=== PATIENT | male | born 1965 | race Caucasian/White ===

== ENCOUNTER 2024-05-11 09:11 | Inpatient (IN) | payer MEDICARE ==
[~2024-05-11] VITALS: Ht 175.3 cm; Wt 82.6 kg
[2024-05-11 09:50] LABS: BASOPHILS # (AUTO) 0.1 K/UL (0.0-0.2); BASOPHILS % (AUTO) 0.5 % (0.0-2.0); HEMATOCRIT 43.1 % (36.7-47.1); LYMPHOCYTES # (AUTO) 0.9 K/uL (0.8-4.8); LYMPHOCYTES % (AUTO) 5.8 % (20.5-51.5); MEAN CORPUSCULAR HEMOGLOBIN 32.7 uug (23.8-33.4); MEAN CORPUSCULAR HGB CONC 33 g/dL (32.5-36.3); MEAN CORPUSCULAR VOLUME 100.6 fL (73.0-96.2); MONOCYTES # (AUTO) 0.9 K/uL (0.1-1.30); MONOCYTES % (AUTO) 5.5 % (0.0-11.0); NEUTROPHILS # (AUTO) 14.4 K/uL (1.8-8.9); NEUTROPHILS % (AUTO) 88.2 % (38.5-71.5); PLATELET COUNT (AUTO) 309 K/uL (152-348); RED BLOOD CELL COUNT(AUTO) 4.29 MIL/uL (4.06-5.63); RED CELL DISTRIBUTION WIDTH 13.5 % (12.1-16.2); WHITE BLOOD COUNT (AUTO) 16.4 K/uL (3.6-10.2)
[2024-05-11 09:51] LABS: DIFFERENTIAL COMMENT 1
[2024-05-11 09:59] LABS: ALBUMIN 3.9 g/dL (3.4-5.0); BILIRUBIN,TOTAL 0.6 mg/dL (0.2-1.0); CALCIUM 9.4 mg/dL (8.5-10.1); CREATININE 2.9 mg/dL (0.6-1.3); POTASSIUM 5.4 mmol/L (3.5-5.1); TOTAL PROTEIN, SERUM 7.7 g/dL (6.4-8.2)
[2024-05-11] MEDS: IV NS 1000 ML 1,000 ML IV ONE ×2 (10:01→10:35)
[2024-05-11 10:19] LABS: ABG BASE EXCESS -13.8 mmol/L (-2.0-3.0); ABG HCO3 10.8 mmol/L (21.0-28.0); ABG PH 7.288 (7.350-7.450); ABG SITE RIGHT RADIAL; AaDO2 94.1 mmHg; COHb 0.4 % (0.5-1.5); MetHb 0.3 % (0.0-1.5); O2Hb 94.1 % (94.0-98.0)
[2024-05-11] MEDS ORDERED: BUSP30TA2 PO (10:23)
[2024-05-11] MEDS ORDERED: ARIP5TAB59 PO (10:23)
[2024-05-11] MEDS ORDERED: EZET10TA32 PO (10:23)
[2024-05-11] MEDS ORDERED: LEVO75TA7 PO (10:23)
[2024-05-11] MEDS ORDERED: ROSU10TA2 PO (10:23)
[2024-05-11] MEDS ORDERED: TRAZ300T2 PO (10:23)
[2024-05-11] MEDS ORDERED: INSU1CAR (10:23)
[2024-05-11] MEDS ORDERED: METF-440 PO (10:23)
[2024-05-11] MEDS ORDERED: VILA40TA PO (10:23)
[2024-05-11] MEDS ORDERED: LOSA100T31 PO (10:23)
[2024-05-11] MEDS ORDERED: INSU100V39 SQ (10:23)
[2024-05-11] MEDS ORDERED: INSULIN REGULAR, HUMAN 1000 UNIT/10 ML VIAL ONE (10:24)
[2024-05-11 10:31] LABS: ACETONE, SERUM SMALL (NEGATIVE)
[2024-05-11] MEDS: INSULIN REGULAR, HUMAN 1000 UNIT/10 ML VIAL IV ONE ×2 (10:34→11:40)
[2024-05-11] MEDS: ONDANSETRON 4 MG/2 ML VIAL IV ONE (10:35)
[2024-05-11] MEDS ORDERED: ONDANSETRON 4 MG/2 ML VIAL ONE (10:36)
[2024-05-11] MEDS ORDERED: diphenhydrAMINE 50 MG/1 ML VIAL ONE ×2 (10:57→16:17)
[2024-05-11] MEDS ORDERED: HALOPERIDOL LACTATE 5 MG/1 ML VIAL ONE ×2 (10:57→16:17)
[2024-05-11] MEDS ORDERED: LORAZEPAM 2 MG/1 ML VIAL ONE ×2 (10:58→16:18)
[2024-05-11] MEDS: HALOPERIDOL LACTATE 5 MG/1 ML VIAL IV ONE (11:00)
[2024-05-11 11:01] LABS: MAGNESIUM 2.3 mg/dL (1.8-2.4); PHOSPHOROUS 5.4 mg/dL (2.5-4.9)
[2024-05-11] MEDS: diphenhydrAMINE 50 MG/1 ML VIAL IV ONE (11:02)
[2024-05-11 11:03] LABS: *BILIRUBIN,URIN NEGATIVE (NEGATIVE); *BLOOD, URINE NEGATIVE (NEGATIVE); *CLARITY,URINE CLEAR (CLEAR); *COLOR,URINE YELLOW (YELLOW); *KETONES,URINE 4+ (NEGATIVE); *PROTEIN,URINE NEGATIVE (NEGATIVE); *UROBILINOGEN,URINE 0.2 E.U./dl (NORMAL); LEUKOCYTE ESTERASE ,URINE NEGATIVE (NEGATIVE); NITRITE, URINE NEGATIVE (NEGATIVE); PH,URINE 5.5 (5.0-8.0); UGLUCOSE 2+ (NEGATIVE)
[2024-05-11 11:04] LABS: BACTERIA,URINE FEW /HPF (NONE SEEN); WBC,URINE 0-3 /HPF (0-3)
[2024-05-11] MEDS: LORAZEPAM 2 MG/1 ML VIAL IV ONE ×2 (11:04→16:50)
[2024-05-11] MEDS ORDERED: INSULIN REGULAR, HUMAN 100 UNIT in IV NORMAL SALINE 100 ML IV PRN (12:30)
[2024-05-11] MEDS: BLOOD SUGAR DIAGNOSTIC 1 EACH STRIP VI SCH ×2 (13:30→15:00)
[2024-05-11 14:59] LABS: CALCIUM 9.1 mg/dL (8.5-10.1); CREATININE 2.2 mg/dL (0.6-1.3); POTASSIUM 4.7 mmol/L (3.5-5.1)
[2024-05-11] MEDS: INSULIN REGULAR, HUMAN 100 UNIT in IV NORMAL SALINE 99 ML IV PRN (15:02)
[2024-05-11] MEDS ORDERED: MORPHINE SULFATE 2 MG/1 ML DISP.SYRIN IV PRN (15:30)
[2024-05-11] MEDS ORDERED: ONDANSETRON 4 MG/2 ML VIAL IV PRN (15:30)
[2024-05-11] MEDS ORDERED: ACETAMINOPHEN 325 MG TABLET PO PRN (15:30)
[2024-05-11] MEDS: IV NS 1000 ML 1,000 ML IV PRN (16:04)
[2024-05-11] MEDS: diphenhydrAMINE 50 MG/1 ML VIAL IV PRN (16:49)
[2024-05-11] MEDS: HALOPERIDOL LACTATE 5 MG/1 ML VIAL IVP PRN (16:50)
[2024-05-11] MEDS: busPIRone 10 MG TABLET PO SCH (16:56)
[2024-05-11] MEDS ORDERED: Medication Not On Formulary EA (Rosuvastatin Calcium (Crestor) 10 MG) PO SCH (21:00)
[2024-05-11] MEDS: TRAZODONE 100 MG TABLET PO SCH (21:00)
[2024-05-11] MEDS: ATORVASTATIN 20 MG TABLET PO SCH (21:00)
[2024-05-11] MEDS ORDERED: TRAZODONE HCL 300 MG PO SCH (21:00)
[2024-05-11 21:30] VITALS: BP 111/73; TEMP 97.9
[2024-05-11 22:00] VITALS: BP 100/64
[2024-05-11 23:00] VITALS: BP 96/55
[2024-05-11] MEDS: IV D5/ 0.9% NACL 1,000 ML IV PRN (23:20)
[2024-05-11] MEDS: BLOOD SUGAR DIAGNOSTIC 1 EACH STRIP VI ONE (23:41)
[2024-05-12] VITALS (21 sets, daily range): BP systolic 90–133; BP diastolic 42–83; TEMP 97.4–98.3; O2SAT 93–98
[2024-05-12] MEDS: BLOOD SUGAR DIAGNOSTIC 1 EACH STRIP VI SCH ×2 (04:42→08:37)
[2024-05-12 05:06] LABS: BASOPHILS % (AUTO) 0.3 % (0.0-2.0); EOSINOPHILS % (AUTO) 0.1 % (0.0-7.0); HEMOGLOBIN 12.4 g/dL (12.5-16.3); LYMPHOCYTES # (AUTO) 1.9 K/uL (0.8-4.8); LYMPHOCYTES % (AUTO) 15.5 % (20.5-51.5); MEAN CORPUSCULAR HEMOGLOBIN 32.3 uug (23.8-33.4); MEAN CORPUSCULAR HGB CONC 34 g/dL (32.5-36.3); MEAN CORPUSCULAR VOLUME 93.8 fL (73.0-96.2); MONOCYTES # (AUTO) 0.6 K/uL (0.1-1.30); MONOCYTES % (AUTO) 4.6 % (0.0-11.0); NEUTROPHILS # (AUTO) 9.9 K/uL (1.8-8.9); NEUTROPHILS % (AUTO) 79.5 % (38.5-71.5); PLATELET COUNT (AUTO) 242 K/uL (152-348); RED BLOOD CELL COUNT(AUTO) 3.84 MIL/uL (4.06-5.63); RED CELL DISTRIBUTION WIDTH 13.1 % (12.1-16.2); WHITE BLOOD COUNT (AUTO) 12.4 K/uL (3.6-10.2)
[2024-05-12 05:45] LABS: ACETONE, SERUM TRACE (NEGATIVE)
[2024-05-12 05:47] LABS: ALANINE AMINOTRANSFERASE 26 U/L (16-63); ALBUMIN 3.3 g/dL (3.4-5.0); ALKALINE PHOSPHATASE 49 U/L (50-136); ASPARTATE AMINOTRANSFERASE 19 U/L (15-37); BILIRUBIN,DIRECT 0.1 mg/dL (0.0-0.2); BILIRUBIN,TOTAL 0.5 mg/dL (0.2-1.0); CALCIUM 8.7 mg/dL (8.5-10.1); CARBON DIOXIDE 27 mmol/L (21-32); CHLORIDE 108 mmol/L (98-107); CHOLESTEROL 103 mg/dL (<200); CREATININE 1.5 mg/dL (0.6-1.3); GLUCOSE 195 mg/dL (74-106); HDL CHOLESTEROL 69 mg/dL (40-60); PHOSPHOROUS 2.2 mg/dL (2.5-4.9); POTASSIUM 4.4 mmol/L (3.5-5.1); SODIUM SERUM 143 mmol/L (136-145); THYROID STIMULATING HORMONE 0.501 mIU/mL (0.358-3.740); TOTAL PROTEIN, SERUM 5.7 g/dL (6.4-8.2); TRIGLYCERIDES 45 MG/DL (30-150); UREA NITROGEN, BLOOD 27 mg/dL (7-18)
[2024-05-12] MEDS ORDERED: INSULIN REGULAR, HUMAN 300 UNITS/3 ML VIAL SQ PRN (07:45)
[2024-05-12] MEDS ORDERED: DEXTROSE 50% 50 ML DISP.SYRIN IV PRN (07:45)
[2024-05-12] MEDS: PANTOPRAZOLE SODIUM 40 MG TABLET.DR PO SCH (08:32)
[2024-05-12] MEDS: LEVOTHYROXINE SODIUM 75 MCG TABLET PO SCH (08:38)
[2024-05-12] MEDS ORDERED: VILAZODONE HYDROCHLORIDE PO SCH (09:00)
[2024-05-12] MEDS: [UNRECOGNIZED DRUG - OTHER] PO SCH (09:33)
[2024-05-12] MEDS: VILAZODONE 40 MG PO SCH (09:33)
[2024-05-12] MEDS: EZETIMIBE 10 MG TABLET PO SCH (09:34)
[2024-05-12] MEDS: ARIPIPRAZOLE 5 MG TABLET PO SCH (10:22)
[2024-05-12] MEDS: LORAZEPAM 2 MG/1 ML VIAL IV PRN (13:54)
[2024-05-12] MEDS: OLANZAPINE 10 MG VIAL IM PRN (13:56)
[2024-05-12] MEDS: NEUTRA PHOS PACKET PO ONE (16:41)
[2024-05-12] MEDS: INSULIN REGULAR, HUMAN 1000 UNIT/10 ML VIAL SQ PRN (20:33)
[2024-05-13 03:57] VITALS: BP 132/65; TEMP 97.8; O2SAT 93
[2024-05-13 06:26] LABS: BASOPHILS % (AUTO) 0.8 % (0.0-2.0); EOSINOPHILS # (AUTO) 0.1 K/uL (0.0-0.7); HEMATOCRIT 36.8 % (36.7-47.1); HEMOGLOBIN 12.7 g/dL (12.5-16.3); LYMPHOCYTES # (AUTO) 1.1 K/uL (0.8-4.8); LYMPHOCYTES % (AUTO) 18.4 % (20.5-51.5); MEAN CORPUSCULAR HEMOGLOBIN 32.7 uug (23.8-33.4); MEAN CORPUSCULAR HGB CONC 35 g/dL (32.5-36.3); MEAN CORPUSCULAR VOLUME 94.7 fL (73.0-96.2); MONOCYTES # (AUTO) 0.3 K/uL (0.1-1.30); MONOCYTES % (AUTO) 4.6 % (0.0-11.0); NEUTROPHILS # (AUTO) 4.5 K/uL (1.8-8.9); NEUTROPHILS % (AUTO) 75.2 % (38.5-71.5); PLATELET COUNT (AUTO) 199 K/uL (152-348); RED BLOOD CELL COUNT(AUTO) 3.89 MIL/uL (4.06-5.63); RED CELL DISTRIBUTION WIDTH 13.2 % (12.1-16.2)
[2024-05-13] MEDS: LEVOTHYROXINE SODIUM 50 MCG TABLET PO SCH (06:41)
[2024-05-13 07:05] LABS: CALCIUM 8.8 mg/dL (8.5-10.1); CREATININE 1.3 mg/dL (0.6-1.3); MAGNESIUM 1.8 mg/dL (1.8-2.4); PHOSPHOROUS 2.3 mg/dL (2.5-4.9); POTASSIUM 4.6 mmol/L (3.5-5.1)
[2024-05-13 07:16] VITALS: BP 140/69; TEMP 98.5; O2SAT 94
[2024-05-13 11:29] VITALS: BP 132/68; TEMP 97.8; O2SAT 93
[2024-05-13] MEDS ORDERED: LEVO50TA8 PO (12:03)
== END 2024-05-13 12:30 | disposition home or self-care (01) | DRG 637 ==
LOC: ER 09:11 → TRANSITION 13:06 → CCU 20:39 → TELE3 05-12 20:45
PROVIDERS: ADMIT Internal Medicine; ATTEND Internal Medicine
DX: E10.10 Type 1 diabetes mellitus with ketoacidosis without coma (principal); G92.8 Other toxic encephalopathy; N17.0 Acute kidney failure with tubular necrosis; F02.83 Dementia in other diseases classified elsewhere, unspecified severity, with mood disturbance; Z79.4 Long term (current) use of insulin; E78.5 Hyperlipidemia, unspecified; Z96.41 Presence of insulin pump (external) (internal); E03.9 Hypothyroidism, unspecified; Z79.890 Hormone replacement therapy; D72.829 Elevated white blood cell count, unspecified; E83.39 Other disorders of phosphorus metabolism; E87.5 Hyperkalemia; G31.09 Other frontotemporal neurocognitive disorder; Z79.84 Long term (current) use of oral hypoglycemic drugs; R00.0 Tachycardia, unspecified; F39 Unspecified mood [affective] disorder; Z66 Do not resuscitate
CPT/HCPCS: 36415; 36600; 71045; 83735; 84100; 84443; 84484; 85025; A4606; A4663; G0378; J1200; J1630; J1815; J2060; J2358; J2405; J7040; J7042